=== PATIENT | female | born 1980 | race Hispanic/Latino ===

== ENCOUNTER 2021-05-03 10:17 | Emergency (ER) | payer SELFPAY ==
[2021-05-03 11:22] VITALS: BP 116/91; PULSE 90; RESP 16; TEMP 36.8; O2SAT 99
--- NOTE | 2021-05-03 11:54 | ED.LOWEXIN ---
HPI - Extremity Injury (Lower) General Chief Complaint: Extremity Injury, Lower Stated Complaint: injury rt 1st digit toe History of Present Illness HPI Narrative: This is a 40-year-old female comes in complaining of toenail that is about to fall off and worried that she may have a fungus. Patient denies any pain at this time no bleeding just wants to ensure she does not have a fungus Related Data Allergies Allergy/AdvReac Type Severity Reaction Status Date / Time No Known Allergies Allergy Verified 07/21/19 14:34 Review of Systems Review of Systems: Extremity left great toe nail All systems reviewed & are unremarkable except as noted in HPI and below PMFSH Social History Social History Gender identity (if verbalized by the patient): Female Comments At time as signature, I have reviewed and agree with nursing past medical, social, surgical and family history. Please see nursing chart for further information. There is no relevant family history pertinent to the presenting complaint. Exam Narrative: GENERAL:Well-appearing, well-nourished, and in no acute distress. HEAD:Normocephalic, atraumatic. EYES: PERRLA and EOMI. ENT: Nares clear, no rhinorrhea or epistaxis. Mucous membranes moist. NECK: Supple. CHEST: Clear to auscultation. No respiratory distress. HEART: Regular rate and rhythm. Normal peripheral pulses. ABDOMEN: Soft, nontender, nondistended, normal active bowel sounds. EXTREMITIES: Normal range of motion. No edema. SKIN: Warm, dry, no rash. NEURO: No focal deficits. Alert and oriented x3. Course Vital Signs Vital signs: Vital Signs Temperature 98.2 F 05/03/21 11:22 Pulse Rate 90 05/03/21 11:22 Respiratory Rate 16 05/03/21 11:22 Blood Pressure 116/91 H 05/03/21 11:22 Pulse Oximetry 99 05/03/21 11:22 Temperature 98.2 F 05/03/21 11:22 Pulse Rate 90 05/03/21 11:22 Respiratory Rate 16 05/03/21 11:22 Blood Pressure 116/91 H 05/03/21 11:22 Pulse Oximetry 99 05/03/21 11:22 MDM - Extremity Injury (Lower) Differential Diagnosis Differential diagnosis: Likely other (Nailbed injury, fungus of the nail, paronychia) Discharge Plan Discharge Clinical Impression: Nail abnormality Patient Disposition: Home, Self-Care Condition: Stable Instructions: Antibiotic Form, Nail Removal (ED) Additional Instructions: Elevate your hand or foot: Raise your hand or foot above the level of your heart as directed. This will help decrease swelling and pain. Prop your hand or foot on pillows to keep it raised comfortably. Keep your wound clean and dry: When you are allowed to bathe, carefully wash the nail area with soap and water. Put on a clean, new bandage. Change your bandage any time it gets wet or dirty. Rest your hand or foot: You may need to rest your hand or foot for a few days after your procedure. Ask when you can return to work or sports. Prevent ingrown toenails: Do not trim your nails too short or round the corners of your nails. Put a thin cotton pad on the side of your toe in your shoe. This may help decrease pain, help prevent an ingrown nail, and make it more comfortable to walk. Avoid nail trauma: Avoid wearing narrow-toed or tight-fitting shoes. Wear closed toed shoes when you do yard work or other physical work. Eleve la mano o el pie: levante la mano o el pie por encima del nivel del coraz?n delfina se le indique. [place]ant ayudar? a disminuir la hinchaz?n y el dolor. Apoye kelley mano o pie sobre almohadas para mantenerlo elevado c?modamente. Mantenga kelley herida limpia y seca: Cuando le permitan ba?arse, lave cuidadosamente el ?karson de la u?a con agua y jab?n. Col?quese un vendaje nuevo y limpio. Cambie kelley vendaje cada vez que se moje o se ensucie. Descanse la mano o el pie: es posible que deba descansar la mano o el pie gail unos d?as despu?s del procedimiento. Pregunte cu?ndo puede regresar al trabajo o al deporte. Evite las u?as encarnadas: no se lennox las u?as demasiado cortas
== END 2021-05-03 12:36 | disposition home or self-care (01) ==
PROVIDERS: Emergency Provider Nurse Practitioner Family
DX: L60.8 Other nail disorders (principal)
CPT/HCPCS: 99212; G0463